=== PATIENT | male | born 1970 | race Caucasian/White ===

== ENCOUNTER 2017-07-04 09:52 | Outpatient (CLI) | payer OTHER ==
[2017-07-04] MEDS ORDERED: LIDOCAINE 1%, 20 ML MDV 20 ML ONE (12:48)
== END 2017-07-04 20:12 | disposition home or self-care (01) ==
LOC: SCT 09:52
PROVIDERS: ATTEND Internal Medicine Pulmonary Disease
DX: J98.4 Other disorders of lung (principal)
CPT/HCPCS: 32405; 77012; 88305; 88313; J2001